=== PATIENT | male | born 1995 | race Caucasian/White ===

== ENCOUNTER 2023-11-11 04:30 | Emergency (ER) | payer OTHER ==
[~2023-11-11] VITALS: Ht 167.6 cm; Wt 90.9 kg
[2023-11-11] MEDS ORDERED: CYCL-614 PO (05:04)
[2023-11-11] MEDS ORDERED: IBUP-1456 PO (05:04)
[2023-11-11] MEDS: KETOROLAC TROMETH 60MG/2ML VIAL IM ONE (05:30)
[2023-11-11 06:15] VITALS: BP 136/76; PULSE 49; RESP 12; O2SAT 97
== END 2023-11-11 06:20 | disposition home or self-care (01) ==
LOC: EDBD 04:30 → ER 04:30
DX: S23.41XA Sprain of ribs, initial encounter (principal); Z79.899 Other long term (current) drug therapy; X58.XXXA Exposure to other specified factors, initial encounter; Y93.89 Activity, other specified; Y92.89 Other specified places as the place of occurrence of the external cause; Y99.8 Other external cause status
CPT/HCPCS: 71101